=== PATIENT | female | born 1950 | race Caucasian/White ===

== ENCOUNTER 2017-02-17 12:51 | Day surgery (SDC) | payer MEDICARE, OTHER ==
--- NOTE | 2017-02-17 14:53 | RADRPT ---
EXAM DATE/TIME: 02/17/2017 13:30 [place] COMPARISON: No previous studies available for comparison. EXTERNAL COMPARISON: [facility], US THYROID, Feb 07 2017. INDICATIONS : Left thyroid nodule. MEDICAL HISTORY : Hypertension. Breast cancer. Spinal stenosis. SURGICAL HISTORY : section. Right mastectomy with breast reconstruction. Lumbar laminectomy. ENCOUNTER: Initial ACUITY: 1 day PAIN SCORE: 0/10 LOCATION: Left neck ORGAN: Left thyroid lobe SPECIMENS: Four fine needle aspirate(s) submitted for pathologic evaluation. DEVICE: 22 gauge needle Post procedure scanning reveals no hematoma or other complication. The possibility does exist that the tissue obtained will be non-diagnostic. If the sample is non-carter gnostic a repeat biopsy or surgical biopsy may need to be performed. TECHNIQUE: 1. Ultrasound guidance for needle biopsy. 2. Needle biopsy. The risks, benefits, and alternatives to ultrasound guided needle biopsy were explained to the patien t in detail including the risk of bleeding and infection. Written and verbal informed consent was ob tained. With the patient on the ultrasound table, images were obtained. There is a heterogeneous predominant ly solid nodule in the mid to lower pole of the left thyroid gland measuring approximately 2.2 x 1.5 x 1.8 cm. This correlates with the lesion identified on outside ultrasound. Overlying skin was preppe d and draped in the usual sterile fashion and Lidocaine was utilized as a local anesthetic. A needle was advanced into the left thyroid nodule and 4 fine needle aspirations were obtained and diego bmitted for pathologic evaluation. The patient tolerated the procedure well and left the ultrasound suite in stable condition. CONCLUSION: Uncomplicated ultrasound guided needle biopsy of a left thyroid nodule. Guicho Gaxiola MD on February 17, 2017 at 14:50 Board Certified Radiologist. This report was verified electronically.
[2017-02-17] MEDS ORDERED: SODIUM BICARBONATE 8.4% INJ 50 MEQ/50 ML SYR ONE (16:35)
[2017-02-17] MEDS ORDERED: LIDOCAINE HCL 1% PF 30 ML VIAL ONE (16:35)
== END 2017-02-17 16:45 | disposition home or self-care (01) ==
LOC: HRAD 12:51 → HRIP 12:53 → HRAD 16:45
PROVIDERS: ATTEND Family Medicine
DX: E04.1 Nontoxic single thyroid nodule (principal); I10 Essential (primary) hypertension; Z85.3 Personal history of malignant neoplasm of breast
CPT/HCPCS: 10022; 76942; 88172; 88173

== ENCOUNTER 2018-06-22 05:50 | Inpatient (IN) ==
[2018-06-22] MEDS ORDERED: Chlorhexidine Gluconate 2% 1 Pack (2 Cloths) TOPICAL SCH (06:15)
[2018-06-22] MEDS ORDERED: Metoprolol Tartrate 25 MG Tablet PO SCH (06:15)
[2018-06-22] MEDS ORDERED: Sodium Chlor 0.9% Inj 500 ML IV.SIG SCH (07:00)
[2018-06-22] MEDS ORDERED: ceFAZolin 2 GM Premix Inj 2 GM/100 ML BAG IV.SIG SCH (07:00)
[2018-06-22 07:05] LABS: Eos # (Auto) 0.1 th/mm3 (0.0-0.4); Eos % (Auto) 3.3 % (0.0-4.0); Hematocrit 39.2 % (35.0-46.0); Hemoglobin 13.2 gm/dL (11.6-15.3); Lymph # (Auto) 1.6 th/mm3 (1.0-4.8); Lymph % (Auto) 35.8 % (9.0-44.0); Mean Corpuscular HGB Conc 33.6 % (32.0-36.0); Mean Corpuscular Hemoglobin 32.2 pg (27.0-34.0); Mean Corpuscular Volume 95.7 fL (80.0-100.0); Mean Platelet Volume 7.6 fL (7.0-11.0); Mono # (Auto) 0.6 th/mm3 (0.0-0.9); Neut # (Auto) 2.1 th/mm3 (1.8-7.7); Neut % (Auto) 46.9 % (16.0-70.0); Platelet Count 201 th/mm3 (150-450); Red Cell Distribution Width 13.6 % (11.6-17.2); White Blood Count 4.5 th/mm3 (4.0-11.0)
[2018-06-22 07:26] LABS: Calcium 8.7 mg/dL (8.5-10.1); Carbon Dioxide 26.1 meq/L (21.0-32.0); Potassium 3.9 meq/L (3.5-5.1)
[2018-06-22] MEDS ORDERED: Ropivacaine 0.5% PF Inj 20 ML Vial ONE (07:27)
[2018-06-22] MEDS ORDERED: Dexmedetomidine Inj 200 MCG/2 ML Vial ONE (09:10)
[2018-06-22] MEDS ORDERED: Post-op Orders (for Pharmacy) OTHER ONE (10:15)
[2018-06-22] MEDS ORDERED: Bisacodyl 10 MG Supp RECTAL PRN (10:15)
--- NOTE | 2018-06-22 10:15 | P.OP ---
- Preoperative Diagnosis (1) Ventral incisional hernia - Postoperative Diagnosis (1) Ventral incisional hernia Date of procedure: 06/22/18 Procedure: Open repair ventral incisional hernia with modified separation of components, placement of retro-muscular mesh, placement of PIC O dressing Implants: Atrium Prolite mesh Anesthesia: MARGARETA Surgeon: Bernabe Felipe MD Pattern Attendant: Kailey Santacruz MS3 Estimated blood loss (mL): 15 Urine output (mL): 100 Pathology: none sent Operation and Findings: The patient was identified as Kiara Chavez, taken to the operating room, and placed in a supine position. Sequential compression device were placed on bilateral lower extremities. Following induction of adequate general endotracheal anesthesia, anesthesia performed a TaP block. The patient then had a Gallo catheter placed. Her abdomen was then prepped and draped in usual sterile fashion with Betadine. A timeout procedure was performed. Following completion timeout procedure everyone's satisfaction within the room, her previous low transverse incision was incised with the scalpel. The central two thirds was used for access. Hemostasis was controlled with electrocautery. Dissection continued posteriorly. The location of the hernia defect the hernia sac was somewhat thickened and scarred and was left intact. Identification of the margins of the hernia defect which is about 8-10 cm in diameter ended up being the rectus muscle and fascia at the midline on the right side, and the oblique fascia and musculature on the left side. There was absence of the rectus muscle on the left side. Development of a retro-muscular plane bilaterally in a modified component separation technique was performed. This allowed for mobilization of the posterior rectus fascia on both sides more of the right side moving to the left side. This allowed for imbrication and closure of the posterior fashion peritoneum overlying the hernia sac which was left intact. Measurements were taken and a 15 x 15" piece of atrium Prolite mesh was customized in size and placed in the retro-muscular plane. It was held in position of the 12 and 6:00 positions with interrupted 2-0 PDS sutures. Inferiorly the sutures were placed along the pubic symphysis. Sutures were then placed at the 3 and 9:00 positions and the mesh was made taut in the retro- muscular position placing interrupted 2-0 PDS sutures spaced evenly between the 12 and 3:00 6 and 9:00 9 and 12:00 and then 3 and 6:00 positions. The retro- muscular plane was then irrigated copiously with saline. Mobilization of the anterior fascia and muscle was then performed on both sides using electrocautery in the plane between the anterior fascia and the subcutaneous fatty tissue. Mobilization was limited on the left side due to the anterior superior iliac spine. The anterior fascia was then approximated the midline with minimal tension using a running #1 single-stranded PDS suture starting both superiorly and inferiorly and meeting in the middle this created an excellent closure and reapproximation of the anterior fascia and musculature over the top of the atrium Prolite mesh. The subcutaneous space was irrigated. Hemostasis was assured. Subcutaneous fat was then sutured to the anterior abdominal wall in a quilted fashion with interrupted 2-0 Vicryl sutures. Subcutaneous fat was then closed with multiple interrupted 2-0 Vicryl sutures in a deep and superficial layer. The skin was then approximated the running 4- 0 Monocryl subcuticular suture. Dressings were applied with Mastisol and a PIC O dressing which was connected to suction and there was no evidence of leak. The patient tolerated the procedure without apparent complication. Sponge needle and instrument counts were correct at the end of the case. Patient was transported to PACU in stable condition.
--- NOTE | 2018-06-22 10:18 | ECG ---
Date Performed: 06/22/2018 Time Performed: 07:02:36 PTAGE: 67 years EKG: SINUS BRADYCARDIA BORDERLINE ECG NO PREVIOUS TRACING DOCTOR: Alistair Kraft Interpretating Date/Time 06/22/2018 10:15:08
[2018-06-22] MEDS ORDERED: fentaNYL Citrate Inj 100 MCG/2 ML Ampul ONE (10:24)
[2018-06-22] MEDS ORDERED: Ketorolac Inj 30 MG/ML (IVP) Vial IV.PUSH PRN (11:00)
[2018-06-22] MEDS ORDERED: Glycopyrrolate Inj 1 MG/5 ML Syringe IV.PUSH ONE (12:00)
[2018-06-22] MEDS ORDERED: Neostigmine Inj 5 MG/5 ML Syringe IV.PUSH ONE (12:00)
[2018-06-22] MEDS ORDERED: Ketorolac Inj 30 MG/ML (IVP) Vial IV.PUSH ONE (12:00)
[2018-06-22] MEDS ORDERED: Lidocaine PF 1% Inj 5 ML Syringe INFILTRATN ONE (12:00)
[2018-06-22 13:24] VITALS: PULSE 60
--- NOTE | 2018-06-22 19:29 | P.DS ---
Date of admission: 06/22/18 10:15 Primary care physician: Lenny Moss DO Attending physician on discharge: Bernabe Felipe Anticipated date of discharge: 06/22/18 Brief History from admission: Patient was admitted postoperatively after open repair ventral incisional hernia with modified separation of components and placement of retrovascular mesh. Patient is able to eat and drink and is comfortably able to tolerate her pain with pain medications provided. She is desirous of discharge home this evening and her is at her bedside willing to take her. Discharge and follow-up instructions were provided verbally and are printed for her in her chart. A prescription for pain medication will be provided. DS: Diagnosis - Discharge Diagnosis (1) Ventral incisional hernia Status: Chronic DS: Medications - Discharge Medications Prescriptions: hydrocodone-acetaminophen 1 tab PO Q4H PRN #10 tab PRN Reason: Pain Scale 1 To 5 DS: Summary Hospital Course: Patient was admitted to the hospital postoperatively after repair of her hernia. Please see operative note for details. Since her surgery she has been able to eat and drink and be up and moving around. Her pain is well controlled. She desires discharge. - Time Spent with Patient Total time spent providing and/or coordinating discharge services: Less than 30 minutes - Quality: AMI Clinical Trial Participant: No - Quality: Stroke Symptom Onset Unknown: No - Quality: VTE Deep Vein Thrombosis/Pulmonary Embolism Present on Admission: No Exam Vital signs: Vital Signs 06/22/18 06:53 06/22/18 10:15 06/22/18 10:30 Temperature 98.0 F 97.4 F L Pulse Rate 53 L 60 56 L Respiratory Rate 18 16 16 Blood Pressure 137/79 154/76 H 150/73 H Pulse Oximetry 95 98 98 06/22/18 11:00 06/22/18 11:15 06/22/18 11:30 Temperature Pulse Rate 52 L 58 L 54 L Respiratory Rate 16 16 16 Blood Pressure 150/72 H 145/71 H 147/67 H Pulse Oximetry 98 98 97 06/22/18 12:00 06/22/18 13:23 06/22/18 16:00 Temperature 97.4 F L 97.9 F Pulse Rate 52 L 60 60 Respiratory Rate 16 18 18 Blood Pressure 140/71 135/75 127/60 Pulse Oximetry 98 96 96 Intake & Output 06/22/18 06/22/18 06/23/18 06:59 18:59 06:59 Intake Total 2620 / 2620 Output Total 115 / 115 Balance 2505 / 2505 Weight 62.5 kg 62.5 kg Intake: IV 1200 / 1200 Ofirmev Inj 1,000 mg In 100 ml 100 / 100 @ 400 mls/hr IV.SIG 0200,0800, 1400,2000 [facility] Rx#:[id number] LR 1000 mL Inj 1,000 ML @ 30 1000 / 1000 mls/hr IV.SIG .Q24H [facility] Rx#: [id number] Ancef 2 GM Premix Inj 2 gm In 100 / 100 100 ml @ 200 mls/hr 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 Minimal drainage dry on PIC O dressing. Extremities nonedematous. Results Procedures completed during hospitalization: Open repair ventral incisional hernia with separation of components placement of retrocrural muscular mesh and PIC O dressing Labs on day of discharge: Labs from last 24 hours 06/22/18 06/22/18 06:49 06:49 WBC 4.5 RBC 4.10 Hgb 13.2 Hct 39.2 MCV 95.7 MCH 32.2 MCHC 33.6 RDW 13.6 Plt Count 201 MPV 7.6 Neut % (Auto) 46.9 Lymph % (Auto) 35.8 [place] % (Auto) 13.0 H Eos % (Auto) 3.3 Baso % (Auto) 1.0 Neut # (Auto) 2.1 Lymph # (Auto) 1.6 [place] # (Auto) 0.6 Eos # (Auto) 0.1 Baso # (Auto) 0.0 WBC Differential . Differential Comment Auto diff final Sodium 142 Potassium 3.9 Chloride 108 H Carbon Dioxide 26.1 Anion Gap 8 BUN 26 H Creatinine 1.02 H Estimated GFR 54 L Random Glucose 80 Calcium 8.7 Discharge Plan - Discharge Disposition Patient Disposition: 01 Discharge Home - Discharge Condition Condition: Good - Discharge Order Discharge Orders: Discharge Order (Routine); Ordered 06/22/18 Ordered By: Bernabe Felipe - Discharge Details Anticipated Discharge Date: 06/22/18 - Physicians Team Primary Care Provider: Lenny Moss Attending Provider: Bernabe Felipe - Rxs /Orders / Referrals /Forms Prescriptions: New diphenhydramine HCl 25 mg Capsule 25 mg PO HS PRN (Reason: Sleep) RF: 0 hydrocodone-acetaminophen 5-325 mg Tablet 1 tab PO Q4H PRN (Reason: Pain Scale 1 To 5) Qty: 10 RF: 0 metoprolol tartrate 25 mg Tablet 25 mg 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
[2018-06-22 20:23] VITALS: BP 123/60; RESP 17; TEMP 98; O2SAT 97
[2018-06-23] MEDS ORDERED: Enoxaparin Inj 30 MG/0.3 ML Syringe SQ SCH (09:00)
[2018-06-23] MEDS ORDERED: Venlafaxine XR 37.5 MG Capsule PO SCH (09:00)
[2018-06-23] MEDS ORDERED: Gabapentin 300 MG Capsule PO SCH (09:00)
[2018-06-23] MEDS ORDERED: Metoprolol Tartrate 25 MG Tablet PO SCH (09:00)
== END 2018-06-22 21:00 | disposition home or self-care (01) ==
LOC: HSDC 05:50 → N07 10:15
PROVIDERS: ADMIT Surgery Trauma Surgery; ATTEND Surgery Trauma Surgery